=== PATIENT | male | born 1930 | race Caucasian/White ===

== ENCOUNTER 2018-03-13 15:49 | Inpatient (IN) | payer MEDICARE, OTHER ==
[~2018-03-13] VITALS: Ht 175.3 cm; Wt 74.0 kg
--- NOTE | 2018-03-13 16:02 | NUR ---
BIB [facility]. C/O SOB and cough since 0200. Hx COPD. Patient took two albuterol nebs at home and used home rescue inhaler without relief. Albulterol neb with [facility]. 96% RA. Expiratory wheezing and continues to have C/O SOB. EKG done. 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 Will continue to monitor.
--- NOTE | 2018-03-13 16:04 | NUR ---
Also has C/O constipation, which he states is chronic.
[2018-03-13] MEDS ORDERED: ALBUTEROL/IPRATROPIUM 2.5MG/0.5MG, 3 ML ONE ×2 (16:24→17:56)
[2018-03-13] MEDS ORDERED: methylPREDNISolone SOD SUCC 125 MG/2 ML IVP ONE (16:30)
[2018-03-13] MEDS ORDERED: PLEASE ENTER HEIGHT AND WEIGHT MC SCH (16:30)
[2018-03-13] MEDS ORDERED: methylPREDNISolone SOD SUCC 125 MG/2 ML ONE (16:30)
[2018-03-13] MEDS ORDERED: SODIUM CHLORIDE FLUSH 10ML SYR IVF ONE (16:30)
[2018-03-13] MEDS ORDERED: ALBUTEROL/IPRATROPIUM 2.5MG/0.5MG, 3 ML NPPB ONE ×2 (16:30→18:00)
[2018-03-13 16:43] LABS: BASOPHILS # (AUTO) 0.05 x10^3/uL (0-0.1); BASOPHILS % (AUTO) 1 % (0-1); EOSINOPHILS % (AUTO) 12 % (1-7); LYMPHOCYTES # (AUTO) 1.03 x10^3/uL (1-3.4); LYMPHOCYTES % (AUTO) 9 % (22-44); MD NO; MEAN CORPUSCULAR HEMOGLOBIN 32.6 pg (27.5-34.5); MEAN CORPUSCULAR HGB CONC 34.5 g/dL (33.2-36.2); MEAN CORPUSCULAR VOLUME 94.4 fL (81-97); MEAN PLATELET VOLUME 9.5 fL (7.4-10.4); MONOCYTES # (AUTO) 0.84 x10^3/uL (0.2-0.8); MONOCYTES % (AUTO) 7 % (2-9); NEUTROPHILS # (AUTO) 8.35 x10^3/uL (1.8-6.8); NEUTROPHILS % (AUTO) 72 % (42-75); PLATELET COUNT 183 x10^3/uL (130-400); RED BLOOD COUNT 4.67 x10^6/uL (4.38-5.82); RED CELL DISTRIBUTION WIDTH 13.4 % (9.4-14.8)
[2018-03-13 16:54] LABS: ALBUMIN 3.9 g/dL (3.4-5.0); ANION GAP 6 mmol/L (5-15); CALCIUM 9.4 mg/dL (8.5-10.1); CHLORIDE 107 mmol/L (98-107); CREATININE 1.42 mg/dL (0.7-1.3)
--- NOTE | 2018-03-13 17:18 | NUR ---
84% on RA. Placed on 2L NC.
[2018-03-13] MEDS ORDERED: CYAN100028 PO (17:44)
[2018-03-13] MEDS ORDERED: ATOR40TA78 PO (17:44)
[2018-03-13] MEDS ORDERED: albuterol neb INH (17:44)
[2018-03-13] MEDS ORDERED: LORA10TA62 PO (17:44)
[2018-03-13] MEDS ORDERED: FURO20TA3 PO (17:44)
[2018-03-13] MEDS ORDERED: ACET325T26 PO (17:44)
[2018-03-13] MEDS ORDERED: PRED5DRO2 EACHEYE (17:44)
[2018-03-13] MEDS ORDERED: OMEP-110 PO (17:44)
[2018-03-13] MEDS ORDERED: FLUT1DIS3 INH (17:44)
[2018-03-13] MEDS ORDERED: DOCU240C53 PO (17:44)
[2018-03-13] MEDS ORDERED: MAGNESIUM CITRATE 300ML ORAL SOL PO ONE (18:00)
[2018-03-13] MEDS ORDERED: MAGNESIUM CITRATE 300ML ORAL SOL ONE (18:24)
[2018-03-13] MEDS ORDERED: SODIUM CHLORIDE FLUSH 10ML SYR IVF PRN (18:30)
--- NOTE | 2018-03-13 18:31 | NUR ---
Ambulated with steady gait to restroom. Patient did not void or produce BM. Mag citrate admin. No other needs.
--- NOTE | 2018-03-13 19:58 | NUR ---
Amublated to the restroom with a steady gait.
--- NOTE | 2018-03-13 20:19 | NUR ---
Patient reports difficulty urinating. Bladder scan = 200mL. No other needs.
--- NOTE | 2018-03-13 20:49 | NUR ---
Report to LATIA Martel.
[2018-03-13 21:15] VITALS: BP 116/62
[2018-03-13] MEDS ORDERED: ALBUTEROL SULFATE 2.5 MG/3 ML NPPB PRN (22:00)
[2018-03-14] MEDS ORDERED: POLYETHYLENE GLYCOL 17 GM PACKET PO PRN
[2018-03-14] MEDS ORDERED: ONDANSETRON ODT 4 MG PO PRN
[2018-03-14] MEDS ORDERED: TEMPLATE NON-FORMULARY MED. (Fluticasone/Salmeterol** (Advair 250-50 Diskus**) 1 PUFF) INH SCH
[2018-03-14] MEDS ORDERED: hydrALAzine 20 MG/ML, 1ML IVPush PRN
[2018-03-14] MEDS ORDERED: DIPHENHYDRAMINE 50 MG CAPSULE PO PRN
[2018-03-14] MEDS ORDERED: LACTULOSE 10 GM/15 ML UDC PO PRN (00:30)
[2018-03-14] MEDS: DOCUSATE CALCIUM 240 MG CAPSULE PO SCH ×3 (00:37→21:00)
[2018-03-14] MEDS: HEPARIN 5,000 UNITS/ML, 1ML SQ SCH ×3 (00:37→16:34)
[2018-03-14 01:52] VITALS: BP 120/70
[2018-03-14] MEDS: ALBUTEROL SULFATE 2.5 MG/3 ML NPPB SCH ×4 (06:30→19:39)
[2018-03-14 07:07] LABS: BASOPHILS # (AUTO) 0.01 x10^3/uL (0-0.1); BASOPHILS % (AUTO) 0 % (0-1); EOSINOPHILS # (AUTO) 0.01 x10^3/uL (0-0.4); EOSINOPHILS % (AUTO) 0 % (1-7); LYMPHOCYTES # (AUTO) 0.81 x10^3/uL (1-3.4); LYMPHOCYTES % (AUTO) 8 % (22-44); MD NO; MEAN CORPUSCULAR HGB CONC 33.7 g/dL (33.2-36.2); MEAN PLATELET VOLUME 9.6 fL (7.4-10.4); MONOCYTES # (AUTO) 0.42 x10^3/uL (0.2-0.8); MONOCYTES % (AUTO) 4 % (2-9); NEUTROPHILS # (AUTO) 8.89 x10^3/uL (1.8-6.8); NEUTROPHILS % (AUTO) 88 % (42-75); PLATELET COUNT 190 x10^3/uL (130-400); RED BLOOD COUNT 4.39 x10^6/uL (4.38-5.82); RED CELL DISTRIBUTION WIDTH 13.4 % (9.4-14.8)
[2018-03-14 07:20] LABS: ALANINE AMINOTRANSFERASE 21 U/L (12-78); ALBUMIN 3.5 g/dL (3.4-5.0); ANION GAP 5 mmol/L (5-15); CALCIUM 8.6 mg/dL (8.5-10.1); CHLORIDE 106 mmol/L (98-107); CREATININE 1.28 mg/dL (0.7-1.3)
[2018-03-14 07:22] LABS: ALKALINE PHOSPHATASE 87 U/L (45-117); BILIRUBIN,TOTAL 0.6 mg/dL (0.2-1.0); TOTAL PROTEIN 6.9 g/dL (6.4-8.2)
[2018-03-14 07:54] VITALS: BP 137/77
[2018-03-14] MEDS: OMEPRAZOLE 20 MG CAPSULE.DR PO SCH (08:09)
[2018-03-14] MEDS: CYANOCOBALAMIN 1,000 MCG TABLET PO SCH (08:09)
[2018-03-14] MEDS: LORATADINE 10 MG TABLET PO SCH (08:09)
[2018-03-14] MEDS: FUROSEMIDE 20 MG TABLET PO SCH (08:10)
[2018-03-14] MEDS: BUDESONIDE 0.5 MG/2 ML INHA INH SCH ×2 (09:00→19:39)
[2018-03-14 11:24] LABS: TROPONIN I < 0.015 ng/mL (0.000-0.045)
[2018-03-14 14:00] VITALS: BP 109/58
[2018-03-14 14:01] VITALS: BP 135/80
[2018-03-14 14:02] VITALS: BP 127/72
[2018-03-14] MEDS: methylPREDNISolone SOD SUCC 40 MG/ML IV SCH ×2 (14:05→21:33)
[2018-03-14 16:32] LABS: TROPONIN I < 0.015 ng/mL (0.000-0.045)
[2018-03-14 20:09] VITALS: BP 112/66
[2018-03-14] MEDS: ATORVASTATIN 40 MG TABLET PO SCH (21:33)
[2018-03-14] MEDS: ACETAMINOPHEN 325 MG TABLET PO PRN (22:08)
[2018-03-15] VITALS (7 sets, daily range): BP systolic 114–139; BP diastolic 67–76
[2018-03-15] MEDS: HEPARIN 5,000 UNITS/ML, 1ML SQ SCH ×4 (00:21→23:51)
[2018-03-15 05:26] LABS: BASOPHILS % (AUTO) 1 % (0-1); EOSINOPHILS # (AUTO) 0.01 x10^3/uL (0-0.4); EOSINOPHILS % (AUTO) 0 % (1-7); LYMPHOCYTES # (AUTO) 0.94 x10^3/uL (1-3.4); LYMPHOCYTES % (AUTO) 6 % (22-44); MD NO; MEAN CORPUSCULAR HEMOGLOBIN 32.5 pg (27.5-34.5); MEAN CORPUSCULAR HGB CONC 34.3 g/dL (33.2-36.2); MEAN PLATELET VOLUME 9.6 fL (7.4-10.4); MONOCYTES # (AUTO) 0.55 x10^3/uL (0.2-0.8); MONOCYTES % (AUTO) 3 % (2-9); NEUTROPHILS # (AUTO) 14.75 x10^3/uL (1.8-6.8); NEUTROPHILS % (AUTO) 90 % (42-75); PLATELET COUNT 204 x10^3/uL (130-400); RED BLOOD COUNT 4.64 x10^6/uL (4.38-5.82); RED CELL DISTRIBUTION WIDTH 13.4 % (9.4-14.8)
[2018-03-15 05:33] LABS: ANION GAP 6 mmol/L (5-15); CALCIUM 9.3 mg/dL (8.5-10.1); CHLORIDE 103 mmol/L (98-107)
[2018-03-15 05:38] LABS: CREATININE 1.61 mg/dL (0.7-1.3); TROPONIN I < 0.015 ng/mL (0.000-0.045)
[2018-03-15] MEDS: methylPREDNISolone SOD SUCC 40 MG/ML IV SCH ×3 (06:03→23:51)
[2018-03-15] MEDS: ALBUTEROL SULFATE 2.5 MG/3 ML NPPB SCH ×2 (07:00→21:00)
[2018-03-15] MEDS: BUDESONIDE 0.5 MG/2 ML INHA INH SCH ×2 (07:34→21:00)
[2018-03-15] MEDS: DOCUSATE CALCIUM 240 MG CAPSULE PO SCH ×2 (08:10→20:44)
[2018-03-15] MEDS: LORATADINE 10 MG TABLET PO SCH (08:46)
[2018-03-15] MEDS: SODIUM CHLORIDE 0.9% 1,000 ML IV SCH ×2 (08:46→18:30)
[2018-03-15] MEDS: CYANOCOBALAMIN 1,000 MCG TABLET PO SCH (08:46)
[2018-03-15] MEDS: FUROSEMIDE 20 MG TABLET PO SCH (08:46)
[2018-03-15] MEDS: OMEPRAZOLE 20 MG CAPSULE.DR PO SCH (08:46)
[2018-03-15] MEDS: ATORVASTATIN 40 MG TABLET PO SCH (20:44)
[2018-03-15] MEDS: ACETAMINOPHEN 325 MG TABLET PO PRN (23:53)
[2018-03-16 02:12] VITALS: BP 132/77
[2018-03-16] MEDS: SODIUM CHLORIDE 0.9% 1,000 ML IV SCH ×2 (03:51→13:55)
[2018-03-16 05:11] LABS: BASOPHILS % (AUTO) 0 % (0-1); EOSINOPHILS % (AUTO) 0 % (1-7); LYMPHOCYTES # (AUTO) 0.82 x10^3/uL (1-3.4); LYMPHOCYTES % (AUTO) 6 % (22-44); MD NO; MEAN CORPUSCULAR HGB CONC 33.2 g/dL (33.2-36.2); MEAN CORPUSCULAR VOLUME 96.4 fL (81-97); MEAN PLATELET VOLUME 9.9 fL (7.4-10.4); MONOCYTES # (AUTO) 0.35 x10^3/uL (0.2-0.8); MONOCYTES % (AUTO) 2 % (2-9); NEUTROPHILS # (AUTO) 13.78 x10^3/uL (1.8-6.8); NEUTROPHILS % (AUTO) 92 % (42-75); PLATELET COUNT 199 x10^3/uL (130-400); RED BLOOD COUNT 4.39 x10^6/uL (4.38-5.82); RED CELL DISTRIBUTION WIDTH 13.8 % (9.4-14.8)
[2018-03-16 05:23] LABS: ALBUMIN 3.4 g/dL (3.4-5.0); ANION GAP 7 mmol/L (5-15); CHLORIDE 109 mmol/L (98-107)
[2018-03-16 05:25] LABS: CREATININE 1.76 mg/dL (0.7-1.3)
[2018-03-16] MEDS: methylPREDNISolone SOD SUCC 40 MG/ML IV SCH (07:57)
[2018-03-16 08:00] VITALS: BP 115/66
[2018-03-16] MEDS: GUAIFENESIN 200 MG TABLET PO PRN ×2 (08:29→16:19)
[2018-03-16] MEDS: CYANOCOBALAMIN 1,000 MCG TABLET PO SCH (08:29)
[2018-03-16] MEDS: LORATADINE 10 MG TABLET PO SCH (08:29)
[2018-03-16] MEDS: OMEPRAZOLE 20 MG CAPSULE.DR PO SCH (08:29)
[2018-03-16] MEDS: HEPARIN 5,000 UNITS/ML, 1ML SQ SCH ×2 (08:29→16:19)
[2018-03-16] MEDS: BUDESONIDE 0.5 MG/2 ML INHA INH SCH ×2 (09:00→19:55)
[2018-03-16] MEDS: ALBUTEROL SULFATE 2.5 MG/3 ML NPPB SCH ×2 (09:00→19:55)
[2018-03-16] MEDS: DOCUSATE CALCIUM 240 MG CAPSULE PO SCH ×2 (09:00→20:02)
[2018-03-16 14:39] VITALS: BP 69/66
[2018-03-16] MEDS: ATORVASTATIN 40 MG TABLET PO SCH (20:02)
[2018-03-16 20:10] VITALS: BP 99/53
[2018-03-17] MEDS: HEPARIN 5,000 UNITS/ML, 1ML SQ SCH ×3 (00:05→16:28)
[2018-03-17] MEDS: SODIUM CHLORIDE 0.9% 1,000 ML IV SCH (00:05)
[2018-03-17 00:41] VITALS: BP 106/61
[2018-03-17 05:52] LABS: BASOPHILS # (AUTO) 0.02 x10^3/uL (0-0.1); BASOPHILS % (AUTO) 0 % (0-1); EOSINOPHILS # (AUTO) 0.05 x10^3/uL (0-0.4); EOSINOPHILS % (AUTO) 1 % (1-7); LYMPHOCYTES # (AUTO) 1.79 x10^3/uL (1-3.4); LYMPHOCYTES % (AUTO) 16 % (22-44); MD NO; MEAN CORPUSCULAR HGB CONC 33.4 g/dL (33.2-36.2); MEAN CORPUSCULAR VOLUME 95.9 fL (81-97); MEAN PLATELET VOLUME 9.4 fL (7.4-10.4); MONOCYTES # (AUTO) 0.96 x10^3/uL (0.2-0.8); MONOCYTES % (AUTO) 9 % (2-9); NEUTROPHILS # (AUTO) 8.46 x10^3/uL (1.8-6.8); NEUTROPHILS % (AUTO) 75 % (42-75); PLATELET COUNT 166 x10^3/uL (130-400); RED BLOOD COUNT 3.87 x10^6/uL (4.38-5.82); RED CELL DISTRIBUTION WIDTH 13.7 % (9.4-14.8)
[2018-03-17 06:19] LABS: CHLORIDE 112 mmol/L (98-107)
[2018-03-17 06:37] LABS: ALANINE AMINOTRANSFERASE 31 U/L (12-78); ALKALINE PHOSPHATASE 63 U/L (45-117); ANION GAP 6 mmol/L (5-15); BILIRUBIN,TOTAL 0.8 mg/dL (0.2-1.0); CALCIUM 7.7 mg/dL (8.5-10.1); CREATININE 1.38 mg/dL (0.7-1.3); TOTAL PROTEIN 5.9 g/dL (6.4-8.2)
[2018-03-17] MEDS: ALBUTEROL SULFATE 2.5 MG/3 ML NPPB SCH (06:55)
[2018-03-17] MEDS: BUDESONIDE 0.5 MG/2 ML INHA INH SCH (06:55)
[2018-03-17 07:21] VITALS: BP 117/66
[2018-03-17] MEDS ORDERED: GUAIFENESIN ER 600 MG TABLET PO SCH (09:00)
[2018-03-17] MEDS: CYANOCOBALAMIN 1,000 MCG TABLET PO SCH (09:10)
[2018-03-17] MEDS: OMEPRAZOLE 20 MG CAPSULE.DR PO SCH (09:10)
[2018-03-17] MEDS: LORATADINE 10 MG TABLET PO SCH (09:10)
[2018-03-17] MEDS: DOCUSATE CALCIUM 240 MG CAPSULE PO SCH (09:18)
[2018-03-17 13:29] VITALS: BP 113/66
[2018-03-17] MEDS ORDERED: GUAI600T31 PO (16:37)
[2018-03-17] MEDS ORDERED: PRED20TA PO (16:38)
== END 2018-03-17 17:31 | disposition home health service (06) | DRG 682 ==
LOC: ED 18:14 → EDIP 19:11 → 3NE 21:08 → 4EST 03-14 10:00 → DCLOUNGE 03-17 17:08
PROVIDERS: ADMIT Internal Medicine; ATTEND Internal Medicine
DX: N17.9 Acute kidney failure, unspecified (principal); J96.21 Acute and chronic respiratory failure with hypoxia; J44.1 Chronic obstructive pulmonary disease with (acute) exacerbation; K59.00 Constipation, unspecified; D72.829 Elevated white blood cell count, unspecified; E78.5 Hyperlipidemia, unspecified; T38.0X5A Adverse effect of glucocorticoids and synthetic analogues, initial encounter; I35.1 Nonrheumatic aortic (valve) insufficiency; Z90.5 Acquired absence of kidney; Z87.891 Personal history of nicotine dependence; Z85.528 Personal history of other malignant neoplasm of kidney
CPT/HCPCS: 36415; 70450; 71045; 74021; 76770; 80048; 80053; 82040; 84484; 85025; 93005; 93306; 93880; 94640; 96374; 99285; G0378; J1644; J7613; J7620; J7626; J2920; J2930; J7030; J7512

== ENCOUNTER 2018-06-01 18:49 | Emergency (ER) | payer MEDICARE, OTHER ==
[~2018-06-01] VITALS: Ht 175.3 cm; Wt 76.0 kg
[~2018-06-01 18:49] MED LIST: ACET325T26 PO; ATOR40TA78 PO; CYAN100028 PO; DOCU240C53 PO; FLUT1DIS3 INH; FURO20TA3 PO; GUAI600T31 PO; LORA10TA62 PO; OMEP-110 PO; PRED20TA PO; PRED5DRO2 EACHEYE; albuterol neb INH
--- NOTE | 2018-06-01 19:12 | NUR ---
PT PLACED IN [facility]. PT ON VITALS MONITORS. ERP IN EVALUATING PT AT THIS TIME.
[2018-06-01] MEDS ORDERED: MECL-76 PO (19:15)
[2018-06-01] MEDS ORDERED: TIOT18CA INH (19:15)
[2018-06-01] MEDS ORDERED: DOXYCYCLINE (19:15)
[2018-06-01] MEDS ORDERED: SODIUM CHLORIDE FLUSH 10ML SYR IVF ONE (19:30)
--- NOTE | 2018-06-01 19:35 | NUR ---
pt going to rad at this time.
[2018-06-01 19:38] LABS: BASOPHILS # (AUTO) 0.05 x10^3/uL (0-0.1); BASOPHILS % (AUTO) 1 % (0-1); EOSINOPHILS # (AUTO) 0.73 x10^3/uL (0-0.4); EOSINOPHILS % (AUTO) 8 % (1-7); LYMPHOCYTES # (AUTO) 0.97 x10^3/uL (1-3.4); LYMPHOCYTES % (AUTO) 10 % (22-44); MD NO; MEAN CORPUSCULAR HEMOGLOBIN 32.4 pg (27.5-34.5); MEAN CORPUSCULAR HGB CONC 34.6 g/dL (33.2-36.2); MEAN CORPUSCULAR VOLUME 93.8 fL (81-97); MEAN PLATELET VOLUME 9.8 fL (7.4-10.4); MONOCYTES # (AUTO) 0.92 x10^3/uL (0.2-0.8); MONOCYTES % (AUTO) 10 % (2-9); NEUTROPHILS # (AUTO) 7.04 x10^3/uL (1.8-6.8); NEUTROPHILS % (AUTO) 73 % (42-75); PLATELET COUNT 162 x10^3/uL (130-400); RED BLOOD COUNT 4.33 x10^6/uL (4.38-5.82); RED CELL DISTRIBUTION WIDTH 13.5 % (9.4-14.8)
[2018-06-01 19:51] LABS: ALANINE AMINOTRANSFERASE 34 U/L (12-78); ALBUMIN 3.5 g/dL (3.4-5.0); ANION GAP 4 mmol/L (5-15); CHLORIDE 101 mmol/L (98-107); CREATININE 1.36 mg/dL (0.7-1.3)
[2018-06-01 19:53] LABS: ALKALINE PHOSPHATASE 75 U/L (45-117); BILIRUBIN,TOTAL 0.5 mg/dL (0.2-1.0); TOTAL PROTEIN 6.8 g/dL (6.4-8.2)
--- NOTE | 2018-06-01 20:06 | NUR ---
still awaiting urine sample. pt has urinal at bedside.
[2018-06-01 20:27] LABS: MICROSCOPIC NOT IND
[2018-06-01 20:30] LABS: CULTURE INDICATED? NO
--- NOTE | 2018-06-01 20:51 | NUR ---
all results back, pt up for recheck.
--- NOTE | 2018-06-01 21:10 | NUR ---
PT GOING TO CT.
[2018-06-01 21:55] VITALS: BP 137/68
[2018-06-01] MEDS ORDERED: PINK LADY ENEMA 490 ML BOTTLE PR ONE (22:00)
--- NOTE | 2018-06-01 22:32 | NUR ---
TASK RN: MINISTERIO (FAMILY) [phone] ABLE TO TRANSPORT PT HOME UPON DC.
--- NOTE | 2018-06-01 22:37 | NUR ---
PT HAVING ENEMA DONE AT THIS TIME. [facility] CONTINUE TO MONITOR.
--- NOTE | 2018-06-01 22:59 | NUR ---
pt granddaughter coming to pick pt up and bringing pt o2 tank.
== END 2018-06-01 23:10 | disposition home or self-care (01) ==
LOC: ED 22:05
DX: K59.00 Constipation, unspecified (principal); R10.84 Generalized abdominal pain
CPT/HCPCS: 36415; 74022; 74176; 80053; 81003; 83690; 85025; 99284